=== PATIENT | male | born 1990 | race American Indian/Alaskan Native ===

== ENCOUNTER 2016-11-28 07:58 | Emergency (ER) | payer SELFPAY ==
[2016-11-28 08:07] VITALS: BP 157/99
[2016-11-28] MEDS ORDERED: NORCO 10/325 PO ONE (08:25)
[2016-11-28] MEDS ORDERED: FLEXERIL PO ONE (08:26)
[2016-11-28] MEDS ORDERED: TORADOL IM ONE (08:26)
--- NOTE | 2016-11-28 12:16 | Emergency Department Report ---
Entered by FELIPE RODRIGUEZ, acting as scribe for RYAN VLEEZ PA. ED General Adult HPI - General Chief complaint: Medical Clearance Stated complaint: RIGHT ARM PAIN Time Seen by Provider: 11/28/16 09:43 Source: patient Mode of arrival: Ambulatory Limitations: No Limitations - History of Present Illness Initial comments: 26 y/o male presents to the ED c/o right arm pain status post surgery yesterday. Denies fever, chills, nausea and vomiting. Pain is described as constant and 10/10 on a severity scale. Patient states when he woke up from surgery the doctor had already left and he was not prescribed any meds and he would like an RX for pain medication. patient states "i am only here for pain meds." Patient states he had surgery yesterday at [facility] but he does not recall the name of the physician who performed his surgery. No alleviating or aggravating factors. NKDA. ZEPEDA Complaint: Right arm pain Onset/Timin -: days(s) Location: upper extremity Radiation: non-radiation Severity scale (0 -10): 10 Quality: constant Consistency: constant Improves with: none Worsens with: none Associated Symptoms: denies: confusion, chest pain, cough, diaphoresis, fever/ chills, headaches, loss of appetite, malaise, nausea/vomiting, rash, seizure, shortness of breath, syncope, weakness Treatments Prior to Arrival: none - Related Data Previous Rx's Medication Instructions Recorded Last Taken Type Meloxicam [Mobic] 7.5 mg PO QDAY #5 tablet 11/28/16 Unknown Rx methOCARBAMOL [Robaxin TAB] 500 mg PO TID #15 tab 11/28/16 Unknown Rx Allergies Allergy/AdvReac Type Severity Reaction Status Date / Time No Known Allergies Allergy Unverified 11/28/16 08:03 ED Review of Systems Comment: All other systems reviewed and negative Constitutional: denies: chills, fever Eyes: denies: eye pain, eye discharge, vision change ENT: denies: ear pain, throat pain Respiratory: denies: cough, shortness of breath, wheezing Cardiovascular: denies: chest pain, palpitations Endocrine: no symptoms reported Gastrointestinal: denies: nausea, vomiting Genitourinary: denies: urgency, dysuria Musculoskeletal: arthralgia Skin: denies: rash, lesions Neurological: denies: headache, weakness, numbness, paresthesias, confusion, abnormal gait, vertigo Psychiatric: denies: anxiety, depression Hematological/Lymphatic: denies: easy bleeding, easy bruising ED Past Medical Hx - Past Medical History Previous Medical History?: No - Surgical History Additional Surgical History: ARM SURGERY X2 - Social History Smoking Status: Current Every Day Smoker - Medications Home Medications: Home Medications Medication Instructions Recorded Confirmed Last Taken Type Meloxicam [Mobic] 7.5 mg PO QDAY #5 tablet 11/28/16 Unknown Rx methOCARBAMOL [Robaxin TAB] 500 mg PO TID #15 tab 11/28/16 Unknown Rx ED Physical Exam - General Limitations: No Limitations General appearance: alert, in no apparent distress - Head Head exam: Present: atraumatic, normocephalic, normal inspection - Eye Eye exam: Present: normal appearance, PERRL, EOMI Pupils: Present: normal accommodation - ENT ENT exam: Present: normal exam, normal orophraynx, mucous membranes moist, TM's normal bilaterally, normal external ear exam - Neck Neck exam: Present: normal inspection, full ROM - Respiratory Respiratory exam: Present: normal lung sounds bilaterally. Absent: respiratory distress, wheezes, rales, rhonchi, stridor - Cardiovascular Cardiovascular Exam: Present: regular rate, normal rhythm, normal heart sounds - GI/Abdominal GI/Abdominal exam: Present: soft, normal bowel sounds. Absent: distended, tenderness, guarding, rebound - Rectal Rectal exam: Present: deferred - Extremities Exam Extremities exam: Present: normal inspection (patient has splint applied to right forearm from yesterday's procedure) - Back Exam Back exam: Present: normal inspection, full ROM - Neurological Exam Neurological exam: Present: alert, oriented X3, normal gait - Psychiatric Psychiatric exam: Present: normal affect, normal mood - Skin Skin exam: Present: warm, dry, intact, normal color. Absent: rash ED Course Vital Signs 11/28/16 11/28/16 08:04 08:44 Temperature 97.9 F Pulse Rate 98 H Respiratory 18 16 Rate Blood Pressure 157/99 O2 Sat by Pulse 100 Oximetry ED Medical Decision Making - Medical Decision Making 26 year old male presents to ED with post op pain. patient states he had surgery on his right forearm yesterday at a hand/ortho outpatient clinic and the surgeon did not prescribe him any pain medication. patient states he attempted to call surgeon yesterday and today but had no success. I have attempted to call the outpatient clinic where the patient had surgery but there is no infusion pharmacist service or voicemail available. patient will not be prescribed narcotics and will be given RX for NSAIDS and muscle relaxants. patient agrees and understands that he needs to contact surgery center on Wednesday for follow up and proper post op prescriptions. ED Disposition Clinical Impression: Pain associated with surgical procedure Disposition: TO HOME OR SELFCARE Is pt being admited?: No Does the pt Need Aspirin: No Condition: Stable Prescriptions: Meloxicam [Mobic] 7.5 mg PO QDAY #5 tablet methOCARBAMOL [Robaxin TAB] 500 mg PO TID #15 tab Referrals: PRIMARY CARE,MD [Primary Care Provider] - 3-5 Days This documentation as recorded by the MICHAEL hancock ELIZABETH,accurately reflects the service I personally performed and the decisions made by ,RYAN VELEZ PA.
== END 2016-11-28 10:41 | disposition home or self-care (01) ==
LOC: ED 07:58
DX: G89.18 Other acute postprocedural pain (principal); F17.200 Nicotine dependence, unspecified, uncomplicated
CPT/HCPCS: 96372; 99282; J1885